=== PATIENT | female | born 1985 | race Caucasian/White ===

== ENCOUNTER 2022-06-15 10:42 | Outpatient (CLI) | payer OTHER, SELFPAY | END 2022-06-15 10:43 | disposition home or self-care (01) | LOC: NFLDREF 11:22 | PROVIDERS: Visit Provider Physician Assistant | DX: Z01.419 Encounter for gynecological examination (general) (routine) without abnormal findings (principal); E78.5 Hyperlipidemia, unspecified; Z30.9 Encounter for contraceptive management, unspecified | CPT/HCPCS: 87624; 88175 ==

== ENCOUNTER 2022-06-20 10:55 | Outpatient (CLI) | payer OTHER, SELFPAY ==
[2022-06-20 11:41] LABS: Cholesterol* 237 mg/dL (90-199); Glucose* 110 mg/dL (60-115); HDL Cholesterol* 34 mg/dL (>=50); LDL Cholesterol Calculated 144 mg/dL (<100); Triglycerides* 294 mg/dL (40-149)
== END 2022-06-20 10:56 | disposition home or self-care (01) ==
PROVIDERS: Visit Provider Physician Assistant
DX: Z01.419 Encounter for gynecological examination (general) (routine) without abnormal findings (principal); E78.5 Hyperlipidemia, unspecified; Z13.1 Encounter for screening for diabetes mellitus
CPT/HCPCS: 80061; 82947

== ENCOUNTER 2025-07-21 08:20 | Outpatient (CLI) | payer OTHER, SELFPAY | END 2025-07-21 08:21 | disposition home or self-care (01) | LOC: NFLDREF 07-24 17:55 | PROVIDERS: Visit Provider Physician Assistant | DX: Z13.6 Encounter for screening for cardiovascular disorders (principal); Z13.1 Encounter for screening for diabetes mellitus | CPT/HCPCS: 80061; 82947 ==